=== PATIENT | female | born 1970 | race Two or more races ===

== ENCOUNTER 2021-07-12 11:39 | Emergency (ER) | payer MEDICAID, OTHER ==
[~2021-07-12] VITALS: Ht 157.5 cm; Wt 98.4 kg
--- NOTE | 2021-07-12 11:57 | NUR ---
TO ER BED 14,SEE N BY DR ERICKSON,X RAYS ORDERED
--- NOTE | 2021-07-12 12:31 | NUR ---
pt c/o rt arm pain pt is homeless wants to be admitted monitors applied to patient Patient discharged to home in stable condition. AWAITING EVALUATION BY ER PROVIDER.
--- NOTE | 2021-07-12 12:53 | NUR ---
pt given lunch cont to monitor
--- NOTE | 2021-07-12 13:21 | NUR ---
pt trying to get a ride home from her daughter
[2021-07-12 13:35] VITALS: BP 121/86
--- NOTE | 2021-07-12 13:37 | NUR ---
right arm splinted daughter picking up patient
--- NOTE | 2021-07-12 13:43 | NUR ---
Patient given written and verbal discharge instructions. Patient verbalizes understanding of instructions. Patient is ambulatory with steady gait. Refuses offer of retirement placement. Patient given list of available shelters in surrounding area.Patient discharged to home in stable condition. Written and verbal after care instructions given. Patient verbalizes understanding of instruction.
== END 2021-07-12 13:44 | disposition home or self-care (01) ==
LOC: ER 11:41
DX: S52.571A Other intraarticular fracture of lower end of right radius, initial encounter for closed fracture (principal); S52.611A Displaced fracture of right ulna styloid process, initial encounter for closed fracture; I10 Essential (primary) hypertension; J45.909 Unspecified asthma, uncomplicated; E11.9 Type 2 diabetes mellitus without complications; F32.9 Major depressive disorder, single episode, unspecified; Z88.8 Allergy status to other drugs, medicaments and biological substances; Z60.2 Problems related to living alone; W18.39XA Other fall on same level, initial encounter; Y93.89 Activity, other specified; Y92.89 Other specified places as the place of occurrence of the external cause; Y99.8 Other external cause status
CPT/HCPCS: 73090-TC; 73110

== ENCOUNTER 2023-09-04 11:03 | Inpatient (IN) | payer OTHER ==
[~2023-09-04] VITALS: Ht 170.2 cm; Wt 98.9 kg
[2023-09-04] MEDS ORDERED: ACETAMINOPHEN 325 MG TABLET PO ONE (12:30)
[2023-09-04] MEDS ORDERED: HALOPERIDOL LACTATE INJ 5 MG/ML VIAL ONE (12:38)
[2023-09-04] MEDS ORDERED: diphenhydrAMINE HCL 50 MG/ML VIAL ONE (12:38)
[2023-09-04] MEDS ORDERED: LORAZEPAM INJ 2 MG/ML VIAL ONE ×2 (12:39→16:25)
[2023-09-04] MEDS ORDERED: ACETAMINOPHEN 325 MG TABLET ONE (12:39)
[2023-09-04 12:53] LABS: BASOPHILS % (AUTO) 0.5 % (0.0-2.0); EOSINOPHILS # (AUTO) 0.1 K/uL (0.0-0.7); HEMATOCRIT 40 % (33-45); HEMOGLOBIN 13.4 g/dL (11.5-14.8); LYMPHOCYTES # (AUTO) 1.8 K/uL (0.8-4.8); LYMPHOCYTES % (AUTO) 19.4 % (20.0-44.0); MEAN CORPUSCULAR HEMOGLOBIN 30 PG (26.0-33.0); MEAN CORPUSCULAR HGB CONC 33 g/dl (31.0-36.0); MEAN CORPUSCULAR VOLUME 90 fL (82-100); MONOCYTES # (AUTO) 0.5 K/uL (0.1-1.30); MONOCYTES % (AUTO) 5.9 % (2.0-12.0); NEUTROPHILS # (AUTO) 6.7 K/uL (1.8-8.9); NEUTROPHILS % (AUTO) 73.2 % (43.0-81.0); PLATELET COUNT (AUTO) 280 K/uL (150-450); RED BLOOD CELL COUNT(AUTO) 4.49 MIL/uL (4.0-5.2); RED CELL DISTRIBUTION WIDTH 14.8 % (11.5-15.0); WHITE BLOOD COUNT (AUTO) 9.1 K/uL (4.3-11.0)
[2023-09-04] MEDS ORDERED: LORAZEPAM INJ 2 MG/ML VIAL IM ONE (13:00)
[2023-09-04] MEDS ORDERED: HALOPERIDOL LACTATE INJ 5 MG/ML VIAL IM ONE (13:00)
[2023-09-04] MEDS ORDERED: diphenhydrAMINE HCL 50 MG/ML VIAL IM ONE (13:00)
[2023-09-04 13:11] LABS: ALANINE AMINOTRANSFERASE 22 U/L (12-78); ALBUMIN 4.1 g/dL (3.4-5.0); ALCOHOL, BLOOD < 3 mg/dL (0-10); ALKALINE PHOSPHATASE 160 U/L (46-116); ASPARTATE AMINOTRANSFERASE 29 U/L (15-37); BILIRUBIN,DIRECT 0.1 mg/dL (0.0-0.2); BILIRUBIN,TOTAL 0.2 mg/dL (0.2-1.0); CALCIUM, SERUM 9.3 mg/dL (8.5-10.1); CARBON DIOXIDE 26 mmol/L (21-32); CHLORIDE 87 mmol/L (98-107); CREATININE 0.5 mg/dL (0.6-1.3); GLUCOSE 121 mg/dL (74-106); POTASSIUM 4.2 mmol/L (3.5-5.1); TOTAL PROTEIN, SERUM 7.8 g/dL (6.4-8.2); UREA NITROGEN, BLOOD 9 mg/dL (7-18)
[2023-09-04 13:13] LABS: ACETAMINOPHEN <10 ug/ml (10-30); SALICYLATE 1.6 mg/dL (2.8-20.0)
[2023-09-04 13:25] LABS: SODIUM SERUM 120 mmol/L (136-145)
[2023-09-04] MEDS ORDERED: KETOROLAC TROMETHAMINE 15 MG/ML VIAL IV ONE (13:30)
[2023-09-04] MEDS ORDERED: ACET-868 PO (13:56)
[2023-09-04] MEDS ORDERED: PARO-64 PO (13:56)
[2023-09-04] MEDS ORDERED: HALO5TAB8 PO (13:56)
[2023-09-04] MEDS ORDERED: DOCU250C14 PO (13:56)
[2023-09-04] MEDS ORDERED: LISI10TA29 PO (13:56)
[2023-09-04] MEDS ORDERED: GLIP5TAB13 PO (13:56)
[2023-09-04] MEDS ORDERED: LEVO50TA PO (13:56)
[2023-09-04] MEDS ORDERED: CLON1TAB PO (13:56)
[2023-09-04] MEDS ORDERED: METF-442 PO (13:56)
[2023-09-04 14:01] LABS: APPEARANCE,URINE CLEAR (CLEAR); BILIRUBIN,URINE NEGATIVE (NEGATIVE); BLOOD, URINE NEGATIVE Ery/uL (NEGATIVE); COLOR,URINE YELLOW (YELLOW); KETONES,URINE NEGATIVE (NEGATIVE); LEUKOCYTE ESTERASE ,URINE NEGATIVE (NEGATIVE); NITRITE, URINE NEGATIVE (NEGATIVE); PROTEIN,URINE TRACE mg/dl (NEGATIVE); UGLUCOSE TRACE mg/dL (NEGATIVE); UROBILINOGEN,URINE 0.2 EU/dL (0.2)
[2023-09-04 14:02] LABS: URINE SODIUM, RANDOM 23 mmol/l (40-220)
[2023-09-04 14:06] LABS: AMPHETAMINE, URINE NEGATIVE (NEGATIVE); BARBITURATE, URINE NEGATIVE (NEGATIVE); BENZODIAZEPINE, URINE NEGATIVE (NEGATIVE); CANNABINOID, URINE NEGATIVE (NEGATIVE); COCCAINE, URINE NEGATIVE (NEGATIVE); OPIATE, URINE NEGATIVE (NEGATIVE); PHENCYCLIDINE SCREEN,URINE NEGATIVE (NEGATIVE)
[2023-09-04 14:15] LABS: ADD URINE CULTURE NO; BACTERIA,URINE Few /HPF (None Seen); RBC,URINE NONE SEEN /HPF (0-2); SQUAMOUS EPITHELIAL CELL,UR Rare /HPF (None Seen); WBC,URINE 0-2 /HPF (0-3)
[2023-09-04] MEDS ORDERED: KETOROLAC TROMETHAMINE 15 MG/ML VIAL ONE (14:41)
[2023-09-04] MEDS ORDERED: LORAZEPAM 4 MG/ML VIAL IV ONE (16:30)
[2023-09-04] MEDS ORDERED: diphenhydrAMINE HCL 25 MG CAPSULE ONE (19:28)
[2023-09-04] MEDS ORDERED: DIPHENHYDRAMINE HCL 12.5 MG/5 ML UDC PO ONE (19:30)
[2023-09-04] MEDS ORDERED: HALOPERIDOL 5 MG TABLET ONE (21:20)
[2023-09-04] MEDS ORDERED: HALOPERIDOL 1 MG TABLET PO ONE (21:30)
[2023-09-04 22:30] LABS: OSMOLALITY,SERUM 263 mOS/kg (278-305); OSMOLALITY,URINE 189 mOS/kg (340-1090)
[2023-09-05] MEDS ORDERED: OLANZAPINE 10 MG VIAL IM ONE ×2 (00:05→00:30)
[2023-09-05] MEDS ORDERED: LORAZEPAM INJ 2 MG/ML VIAL ONE ×3 (00:06→08:14)
[2023-09-05] MEDS ORDERED: LORAZEPAM INJ 2 MG/ML VIAL IM ONE (00:30)
[2023-09-05] MEDS ORDERED: diphenhydrAMINE HCL 50 MG/ML VIAL ONE (01:36)
[2023-09-05] MEDS ORDERED: diphenhydrAMINE HCL 50 MG/ML VIAL IV ONE (02:00)
[2023-09-05] MEDS ORDERED: IV Sodium Chloride 3% 500 ML 500 ML IV ONE (03:00)
[2023-09-05] MEDS ORDERED: MAG HYDROX/AL HYDROX/SIMETH 30 ML UDC PO PRN (03:00)
[2023-09-05] MEDS ORDERED: MAGNESIUM HYDROXIDE 30 ML UDC PO PRN (03:00)
[2023-09-05] MEDS ORDERED: Z GUARD REMEDY 4 OZ OINT TP PRN (03:00)
[2023-09-05] MEDS ORDERED: ONDANSETRON HCL/PF 4 MG/2 ML VIAL IVP PRN (03:00)
[2023-09-05] MEDS ORDERED: ZOLPIDEM TARTRATE 5 MG TABLET PO PRN (03:00)
[2023-09-05] MEDS ORDERED: LORAZEPAM INJ 2 MG/ML VIAL IV ONE (03:30)
[2023-09-05 07:50] LABS: BASOPHILS # (AUTO) 0.1 K/uL (0.0-0.2); BASOPHILS % (AUTO) 0.8 % (0.0-2.0); EOSINOPHILS # (AUTO) 0.1 K/uL (0.0-0.7); EOSINOPHILS % (AUTO) 1.6 % (0.0-6.0); HEMATOCRIT 40 % (33-45); HEMOGLOBIN 13.8 g/dL (11.5-14.8); LYMPHOCYTES # (AUTO) 1.6 K/uL (0.8-4.8); LYMPHOCYTES % (AUTO) 23.6 % (20.0-44.0); MEAN CORPUSCULAR HEMOGLOBIN 31 PG (26.0-33.0); MEAN CORPUSCULAR HGB CONC 34 g/dl (31.0-36.0); MEAN CORPUSCULAR VOLUME 90 fL (82-100); MONOCYTES # (AUTO) 0.5 K/uL (0.1-1.30); MONOCYTES % (AUTO) 7.4 % (2.0-12.0); NEUTROPHILS # (AUTO) 4.4 K/uL (1.8-8.9); NEUTROPHILS % (AUTO) 66.6 % (43.0-81.0); PLATELET COUNT (AUTO) 169 K/uL (150-450); RED BLOOD CELL COUNT(AUTO) 4.47 MIL/uL (4.0-5.2); RED CELL DISTRIBUTION WIDTH 14.3 % (11.5-15.0); WHITE BLOOD COUNT (AUTO) 6.6 K/uL (4.3-11.0)
[2023-09-05] MEDS: LORAZEPAM INJ 2 MG/ML VIAL IV PRN ×2 (08:15→15:44)
[2023-09-05 08:22] LABS: ALBUMIN 2.3 g/dL (3.4-5.0); BILIRUBIN,DIRECT 0.1 mg/dL (0.0-0.2); BILIRUBIN,TOTAL 0.2 mg/dL (0.2-1.0); CALCIUM, SERUM 6.2 mg/dL (8.5-10.1); CREATININE 0.2 mg/dL (0.6-1.3); MAGNESIUM 1.3 mg/dL (1.8-2.4); PHOSPHORUS 2.4 mg/dL (2.5-4.9); TOTAL PROTEIN, SERUM 4.7 g/dL (6.4-8.2)
[2023-09-05 08:30] LABS: POTASSIUM 2.6 mmol/L (3.5-5.1)
[2023-09-05] MEDS ORDERED: PANTOPRAZOLE 40 MG VIAL ONE (08:36)
[2023-09-05] MEDS: PANTOPRAZOLE 40 MG VIAL IV SCH (08:38)
[2023-09-05 09:05] LABS: THYROID STIMULATING HORMONE 0.578 uIU/mL (0.358-3.74)
[2023-09-05] MEDS ORDERED: IV NS 0.9% 1,000 ML IV PRN (10:30)
[2023-09-05] MEDS ORDERED: POTASSIUM CHLORIDE 20 MEQ TAB.PRT.SR PO ONE ×2 (10:30→11:21)
[2023-09-05] MEDS ORDERED: Magnesium 1GM/D5W 100ML PREMIX 100 ML IV SCH (11:00)
[2023-09-05] MEDS ORDERED: Magnesium 1GM/D5W 100ML PREMIX 100 ML IV ONE (11:28)
[2023-09-05] MEDS: POTASSIUM PHOSPHATE MM 7.5 MMOL in IV NS 0.9% 100 ML IV SCH ×2 (12:50→15:33)
[2023-09-05 15:15] VITALS: BP 134/97; TEMP 97.7; O2SAT 100
[2023-09-05] MEDS: IV D5/0.45 NACL 1,000 ML IV PRN (15:47)
[2023-09-05 16:00] VITALS: BP 134/97; TEMP 97.7; O2SAT 100
[2023-09-05] MEDS ORDERED: NEUTRA PHOS 1 POWD.PACKET PO ONE (16:00)
[2023-09-05] MEDS: OLANZAPINE 10 MG VIAL IM PRN (16:35)
[2023-09-05 20:00] VITALS: BP 111/53; TEMP 98.1; O2SAT 97
[2023-09-06] VITALS: BP 109/76; TEMP 98.3; O2SAT 99
[2023-09-06 04:00] VITALS: BP 129/76; TEMP 97.9; O2SAT 100
[2023-09-06 06:09] LABS: BASOPHILS % (AUTO) 0.4 % (0.0-2.0); EOSINOPHILS # (AUTO) 0.1 K/uL (0.0-0.7); EOSINOPHILS % (AUTO) 1.8 % (0.0-6.0); HEMATOCRIT 42 % (33-45); HEMOGLOBIN 13.8 g/dL (11.5-14.8); LYMPHOCYTES # (AUTO) 1.5 K/uL (0.8-4.8); LYMPHOCYTES % (AUTO) 27.5 % (20.0-44.0); MEAN CORPUSCULAR HEMOGLOBIN 30 PG (26.0-33.0); MEAN CORPUSCULAR HGB CONC 33 g/dl (31.0-36.0); MEAN CORPUSCULAR VOLUME 92 fL (82-100); MONOCYTES # (AUTO) 0.5 K/uL (0.1-1.30); MONOCYTES % (AUTO) 9.4 % (2.0-12.0); NEUTROPHILS # (AUTO) 3.4 K/uL (1.8-8.9); NEUTROPHILS % (AUTO) 60.9 % (43.0-81.0); PLATELET COUNT (AUTO) 254 K/uL (150-450); RED BLOOD CELL COUNT(AUTO) 4.56 MIL/uL (4.0-5.2); RED CELL DISTRIBUTION WIDTH 15.6 % (11.5-15.0); WHITE BLOOD COUNT (AUTO) 5.6 K/uL (4.3-11.0)
[2023-09-06 06:17] LABS: CALCIUM, SERUM 9.1 mg/dL (8.5-10.1); CREATININE 0.5 mg/dL (0.6-1.3); MAGNESIUM 2.2 mg/dL (1.8-2.4); PHOSPHORUS 4.1 mg/dL (2.5-4.9); POTASSIUM 5.3 mmol/L (3.5-5.1)
[2023-09-06 06:18] LABS: THYROID STIMULATING HORMONE 0.886 uIU/mL (0.358-3.74); URIC ACID 3.6 mg/dL (2.6-7.2)
[2023-09-06] MEDS: PANTOPRAZOLE 40 MG VIAL IV SCH (07:55)
[2023-09-06] MEDS: LORAZEPAM INJ 2 MG/ML VIAL IV PRN ×2 (07:57→15:24)
[2023-09-06 08:00] VITALS: BP 119/73; TEMP 99.1; O2SAT 99
[2023-09-06] MEDS: MAGNESIUM OXIDE 400 MG TABLET PO SCH (08:00)
[2023-09-06] MEDS: PANTOPRAZOLE 40 MG TABLET.DR PO SCH (08:04)
[2023-09-06] MEDS: OLANZAPINE 10 MG VIAL IM PRN ×2 (09:15→18:12)
[2023-09-06] MEDS: ACETAMINOPHEN 325 MG TABLET PO PRN (11:24)
[2023-09-06] MEDS ORDERED: clonazePAM 1 MG TABLET PO PRN (11:30)
[2023-09-06] MEDS ORDERED: ACETAMINOPHEN 325 MG TABLET PO PRN (11:30)
[2023-09-06 12:00] VITALS: BP_SYST 125; BP_SYST 143; BP_DIAS 66; BP_DIAS 83; TEMP 98.8; O2SAT 100; O2SAT 96
[2023-09-06] MEDS ORDERED: HALOPERIDOL 5 MG TABLET PO SCH (13:00)
[2023-09-06] MEDS: IV D5/0.45 NACL 1,000 ML IV PRN (14:06)
[2023-09-06 16:00] VITALS: BP 143/83; TEMP 98.8; O2SAT 100
[2023-09-06] MEDS: METFORMIN 500 MG TABLET PO SCH (16:03)
[2023-09-06] MEDS: DOCUSATE SODIUM 250 MG CAPSULE PO SCH (16:03)
[2023-09-06] MEDS: HALOPERIDOL 5 MG TABLET PO SCH (16:33)
[2023-09-06 20:00] VITALS: BP 130/3; TEMP 98.8; O2SAT 100
[2023-09-07] VITALS: BP 121/59; TEMP 99.7; O2SAT 100
[2023-09-07 01:11] LABS: CORTISOL SERUM 14.7 ug/dL (6.2-19.4)
[2023-09-07 04:00] VITALS: BP 119/75; TEMP 97.7; O2SAT 100
[2023-09-07] MEDS: LORAZEPAM INJ 2 MG/ML VIAL IV PRN ×2 (05:46→12:47)
[2023-09-07 07:45] LABS: CALCIUM, SERUM 9.4 mg/dL (8.5-10.1); CREATININE 0.4 mg/dL (0.6-1.3); POTASSIUM 5.1 mmol/L (3.5-5.1)
[2023-09-07 08:00] VITALS: BP 114/78; TEMP 98.6; O2SAT 100
[2023-09-07] MEDS: DOCUSATE SODIUM 250 MG CAPSULE PO SCH ×2 (09:00→16:38)
[2023-09-07] MEDS ORDERED: LEVOTHYROXINE SODIUM 50 MCG TABLET PO SCH (09:00)
[2023-09-07] MEDS ORDERED: LISINOPRIL (10MG) 10 MG TABLET PO SCH (09:00)
[2023-09-07] MEDS ORDERED: PAROXETINE HCL 20 MG TABLET PO SCH (09:00)
[2023-09-07] MEDS: PANTOPRAZOLE 40 MG TABLET.DR PO SCH (09:02)
[2023-09-07] MEDS: METFORMIN 500 MG TABLET PO SCH ×2 (09:02→16:38)
[2023-09-07] MEDS: MAGNESIUM OXIDE 400 MG TABLET PO SCH (09:02)
[2023-09-07 09:03] VITALS: BP 119/54
[2023-09-07] MEDS: HALOPERIDOL 5 MG TABLET PO SCH ×3 (09:03→16:38)
[2023-09-07] MEDS: OLANZAPINE 10 MG VIAL IM PRN (09:57)
[2023-09-07] MEDS ORDERED: HALO5TAB8 PO (11:46)
[2023-09-07] MEDS ORDERED: LORAZEPAM INJ 2 MG/ML VIAL IV ONE (14:00)
[2023-09-07] MEDS: ACETAMINOPHEN 325 MG TABLET PO PRN (14:04)
[2023-09-09 13:21] LABS: ACTH, PLASMA 28.3 pg/mL
== END 2023-09-07 17:08 | DRG 426 ==
LOC: ER 11:08 → TRANSITION 09-05 06:42 → MEDSG1 09-05 14:00 → TELE-TD 09-05 14:06 → TELE1 09-07 09:58 → MEDSG1 09-07 10:08
PROVIDERS: ADMIT Internal Medicine; ATTEND Nurse Practitioner Acute Care
DX: E22.2 Syndrome of inappropriate secretion of antidiuretic hormone (principal); E03.9 Hypothyroidism, unspecified; E11.9 Type 2 diabetes mellitus without complications; I10 Essential (primary) hypertension; J45.909 Unspecified asthma, uncomplicated; F20.9 Schizophrenia, unspecified; E86.1 Hypovolemia; E87.6 Hypokalemia; F32.A Depression, unspecified; Z79.84 Long term (current) use of oral hypoglycemic drugs; Z79.899 Other long term (current) drug therapy; T43.225A Adverse effect of selective serotonin reuptake inhibitors, initial encounter; Y92.89 Other specified places as the place of occurrence of the external cause; F39 Unspecified mood [affective] disorder; R51.9 Headache, unspecified; F19.90 Other psychoactive substance use, unspecified, uncomplicated; Z20.822 Contact with and (suspected) exposure to COVID-19
CPT/HCPCS: 36415; 70450-TC; 71045-TC; 80048-TC; 80061-TC; 80076-TC; 81001; 82024; 82088; 82533; 83735-TC; 83935-TC; 84100-TC; 84295-TC; 84300-TC; 84443-TC; 84550-TC; 85025-TC; A4223; C9113; G0378; G0480; J1200; J1630; J1885; J2060; J3475; J3490; J7030; Q0163